=== PATIENT | female | born 1990 | race Caucasian/White ===

== ENCOUNTER 2017-05-22 12:02 | Emergency (ER) | payer BC, SELFPAY ==
[~2017-05-22] VITALS: Ht 175.3 cm; Wt 69.0 kg
[~2017-05-22 12:02] MED LIST: ALBU90OI INH; BENZ100A PO; CEPH500 PO; CYCL10 PO; GUAI600ER PO; Humalog100 UNIT/1 SC; IBUP600 PO; INSLI100I SC; INSUGL100V; LEVAMIR INSULIN; Lantus100 UNIT/1 SC; Valium5 MG PO; Zofran Odt4 MG SL
== END 2017-05-22 14:30 | disposition home or self-care (01) ==
LOC: ER 12:02
DX: T38.3X1A Poisoning by insulin and oral hypoglycemic [antidiabetic] drugs, accidental (unintentional), initial encounter (principal); E11.649 Type 2 diabetes mellitus with hypoglycemia without coma; Z79.4 Long term (current) use of insulin
CPT/HCPCS: 82947; 99283

== ENCOUNTER → 2024-09-23 | Outpatient (CLI) | payer OTHER ==
[2024-09-23 19:25] LABS: Creatinine, Urine Random 81.7 mg/dL (27.00-270.00)
[2024-09-23 19:59] LABS: Microalb/Creat Ratio UR, Rand 7.038 mg/g (0.000-30.000); Microalbumin, Random Urine 5.75 mg/L (0.000-20.000)
== END ==
LOC: LAB SHORT 17:28 → LAB 17:28
PROVIDERS: Physician Assistant
DX: E10.9 Type 1 diabetes mellitus without complications (principal)
CPT/HCPCS: 82043; 82570